=== PATIENT | female | born 1955 | race Caucasian/White ===

== ENCOUNTER 2020-11-30 10:15 | Emergency (ER) | payer OTHER, SELFPAY ==
[2020-11-30 10:30] VITALS: BP 116/95; PULSE 109; RESP 18; TEMP 36.1; O2SAT 98
--- NOTE | 2020-11-30 10:37 | ED.NAVMDI ---
HPI - Nausea/Vomiting/Diarrhea General Chief complaint: Nausea/Vomiting/Diarrhea Stated complaint: nausea, diarhhea, dizziness Time Seen by Provider: 11/30/20 10:43 Source: patient and RN notes reviewed Mode of arrival: ambulatory Limitations: no limitations History of Present Illness HPI Narrative: 65-year-old female resents with concern for nausea, vomiting, diarrhea. She reports watery diarrhea for approximately 2 weeks. Reports she is having approximately 3 watery diarrhea stools daily for 2 weeks. She reports decreased oral intake. Reports dizziness, generalized weakness. Reports approximate 1 month ago she started taking Rybelsus for diabetes and began having side effects such as diarrhea. Reports she stopped taking the medicine 2 weeks ago because of the side effects. Reports she continued to have watery diarrhea daily. She reports she has not taken her blood sugar because her Accu-Chek is broken. She denies generalized abdominal pain, fever. MD elicited complaint: nausea, vomiting and diarrhea Related Data Allergies Allergy/AdvReac Type Severity Reaction Status Date / Time No Known Allergies Allergy Verified 11/30/20 10:52 Review of Systems Review of Systems: Narrative: CONSTITUTIONAL: Denies malaise, chills, sweats, or fever. EYES: Denies visual changes CARDIOVASCULAR: Denies chest pain, palpitations, or edema. RESPIRATORY: Denies cough or dyspnea. GASTROINTESTINAL: Denies abdominal pain. Reports nausea, vomiting, diarrhea. Denies bloody, or mucous stools. GENITOURINARY: Denies dysuria or hematuria. MUSCULOSKELETAL: Reports generalized weakness. Denies myalgia. NEUROLOGIC: Denies numbness, unilateral weakness, or headache. All systems reviewed & are unremarkable except as noted in HPI and below PMFSH Comments At time of signature, agree with nursing past medical, surgical, social and family history. There is no relevant family history pertinent to the presenting complaint Exam Narrative: Exam Narrative: GENERAL: Well-appearing, well-nourished, and in no acute distress. HEAD: Normocephalic, atraumatic. EYES: PERRLA, conjunctivae clear, and EOMI. ENT: Mucous membranes moist. NECK: Supple. No lymphadenopathy. CHEST: No respiratory distress. Clear to auscultation. No bony deformities, no asymmetry. Speaks in full sentences. HEART: Regular rate and rhythm. No murmur heard. Normal peripheral pulses. ABDOMEN: Soft, left upper quadrant tenderness, obese, normal active bowel sounds, no palpable masses. SKIN: Warm, dry, no rash. NEURO: Alert and oriented x3. No focal deficits. PSYCH: Normal mood and affect Course Course Emergency Course: Discussed limited diagnostic capability at the [facility]. Patient is aware of, understands and agrees to be transferred to the emergency department via EMS. Portions of this record may have been created with voice recognition software Vital Signs Vital signs: Vital Signs Temperature 97 F L 11/30/20 10:30 Pulse Rate 109 H 11/30/20 10:30 Respiratory Rate 18 11/30/20 10:30 Blood Pressure 116/95 H 11/30/20 10:30 Pulse Oximetry 98 11/30/20 10:30 Temperature 97 F L 11/30/20 10:30 Pulse Rate 94 11/30/20 10:55 Respiratory Rate 18 11/30/20 10:30 Blood Pressure 120/64 11/30/20 10:55 Pulse Oximetry 98 11/30/20 10:30 Reviewed. Transfer Transfered to: [facility] Transportation: BLS Transfer rationale: Probable dehydration, abnormal EKG, dizziness Accepting physician: trena MDM - Nausea/Vomiting/Diarrhea MDM Narrative Medical decision making narrative: Exam findings and history warrant further evaluation emergency department; patient is non-toxic appearing and is in no distress. Lab Data Labs: Lab Results 11/30/20 Range/Units 10:50 POC Capillary Glucose 243 H (65-105) mg/dl ECG Data EKG #1: ECG completion date: 11/30/20 ECG completion time: 10:57 Prior ECG tracings: not available for review
--- NOTE | 2020-11-30 10:51 | ECG_ITS ---
Measurements Intervals Jadwin Rate: 93 P: 66 CT: 150 QRS: 30 QRSD: 103 T: 48 QT: 352 QTc: 440 Interpretive Statements SINUS RHYTHM POSSIBLE LEFT ATRIAL ENLARGEMENT MINIMAL Q WAVES- INFERIOR LEADS BORDERLINE ECG Electronically Signed On 11-30-2020 12:44:15 CDT by Idris Flowers D.O.
[2020-11-30 10:52] LABS: Glucose Point of Care 243 mg/dl (65-105)
[2020-11-30 10:55] VITALS: BP 120/64; PULSE 94
--- NOTE | 2020-11-30 11:09 | PC.NURSE ---
PT DECLINED WHEELCHAIR TO ROOM
== END 2020-11-30 11:15 | disposition short-term general hospital (02) ==
PROVIDERS: Emergency Provider Nurse Practitioner
DX: R42 Dizziness and giddiness (principal); E78.00 Pure hypercholesterolemia, unspecified; I10 Essential (primary) hypertension
CPT/HCPCS: 82948; 93005; 99205; G0463

== ENCOUNTER 2023-05-27 09:47 | Emergency (ER) | payer OTHER, SELFPAY ==
--- NOTE | ~2023-05-27 | XR_ITS ---
XR hip RT min 2V 05/27/2023 10:26 Indication: Right hip pain. No known injury. Procedure: 2 views right hip Comparison: No prior studies for comparison. Findings: Moderate osteoarthritis of the right hip. No fracture or traumatic malalignment. No soft ti ssue abnormality. No foreign bodies. There is osteitis pubis. Impression: 1: Moderate osteoarthritis of the right hip. Reviewed, dictated and finalized at location B. NOSTIC RADIOLOGIST Impression: 1: Moderate osteoarthritis of the right hip.
[2023-05-27 09:56] VITALS: BP 123/68; PULSE 76; RESP 20; TEMP 36.6; O2SAT 96
--- NOTE | 2023-05-27 10:05 | ED.LOWEXIN ---
HPI - Extremity Injury (Lower) General Chief Complaint: Extremity Injury, Lower Stated Complaint: Right Hip Pain Time Seen by Provider: 05/27/23 10:05 Source: patient Mode of arrival: ambulatory Limitations: no limitations History of Present Illness HPI Narrative: 67-year-old female presents with complaint of pain to right hip for the past several weeks. Reports that she had a area to her soft tissues that was swollen and soft. No erythema, warmth or concerns for infection. States last week while walking up her stairs she felt a pop to her right hip and soft swollen area became hard. Worse that she can see the swelling difference in her hips when she looks in the ear. Taking Tylenol to treat her pain. No other complaints today. Patient requesting x-ray of her right hip. All systems reviewed and negative except as noted above. Related Data Home Medications Medication Instructions Recorded Confirmed duloxetine 30 mg capsule,delayed mg PO 05/27/23 release insulin glargine-yfgn 100 unit/mL unit subcut 05/27/23 (3 mL) subcutaneous pen lisinopril 40 mg tablet mg 05/27/23 metformin 1,000 mg tablet mg 05/27/23 pravastatin 80 mg tablet mg 05/27/23 Allergies Allergy/AdvReac Type Severity Reaction Status Date / Time No Known Allergies Allergy Verified 11/30/20 10:52 Review of Systems Review of Systems: CONSTITUTIONAL: Denies fever, chills, or sweats. EYES: Denies visual changes, redness, or discharge. ENT: Denies rhinorrhea, congestion, sore throat, or otalgia. CARDIOVASCULAR: Denies chest pain, palpitations, or edema. RESPIRATORY: Denies cough or dyspnea. GASTROINTESTINAL: Denies abdominal pain, nausea, vomiting, or diarrhea. GENITOURINARY: Denies dysuria or hematuria. SKIN: Denies rash or itching. MUSCULOSKELETAL: Denies back pain, or myalgia. Reports pain and swelling to right hip. NEUROLOGIC: Denies headache, numbness, or weakness. PSYCHIATRIC: Denies anxiety or depression. All other systems reviewed are negative, except as documented in HPI. PMFSH Comments At time of signature, agree with nursing past medical, surgical, social and family history. There is no relevant family history pertinent to the presenting complaint. Exam Narrative: GENERAL: This is a well-nourished, well-developed patient, in no apparent distress. HEAD: normocephalic, atraumatic. EYES: PERRL. Sclera clear/white. Vision is grossly intact. EARS: External ears normal NOSE: External nose normal NECK: Neck supple, non-tender without lymphadenopathy, masses or thyromegaly. CARDIOVASCULAR: Regular rate and rhythm without murmurs, gallops, or rubs. RESPIRATORY: Clear to auscultation. Breath sounds equal bilaterally. No wheezes, rales, or rhonchi. SKIN: warm, Dry, intact with no suspicious lesions or rash, good texture and turgor. NEURO: awake, alert, and oriented to person, place and time. There were no obvious focal neurologic abnormalities. EXTREMITIES: soft tissue swelling lateral aspect R hip. hard on palpation without fluctuance, erythema or warmth. normal ROM to R hip. Course Course Level of Care: Express Care Visit Vital Signs Vital signs: Vital Signs Temperature 36.6 C 05/27/23 09:56 Pulse Rate 76 05/27/23 09:56 Respiratory Rate 20 05/27/23 09:56 Blood Pressure 123/68 05/27/23 09:56 Pulse Oximetry 96 05/27/23 09:56 Oxygen Delivery Room Air 05/27/23 09:56 Temperature 36.6 C 05/27/23 09:56 Pulse Rate 76 05/27/23 09:56 Respiratory Rate 20 05/27/23 09:56 Blood Pressure 123/68 05/27/23 09:56 Pulse Oximetry 96 05/27/23 09:56 Oxygen Delivery Room Air 05/27/23 09:56 Reviewed MDM - Extremity Injury (Lower) MDM Narrative Medical decision making narrative: Discussed x-ray results with patient. Offered prednisone to treat arthritic pain. He did not feel was necessary. There is nothing on her x-rays to further explain soft tissue swelling. There are no exam find
== END 2023-05-27 11:13 | disposition home or self-care (01) ==
PROVIDERS: Emergency Provider Nurse Practitioner Family; PCP Internal Medicine
DX: M16.11 Unilateral primary osteoarthritis, right hip (principal); M79.89 Other specified soft tissue disorders; Z79.899 Other long term (current) drug therapy; Z79.84 Long term (current) use of oral hypoglycemic drugs; Z79.4 Long term (current) use of insulin
CPT/HCPCS: 73502; 99213; G0463

== ENCOUNTER 2025-01-25 10:01 | Emergency (ER) | payer OTHER, SELFPAY ==
--- NOTE | ~2025-01-25 | XR_ITS ---
EXAM/ PROCEDURE: [id number] - 01/25/2025 10:16 CDT HISTORY: 69 years old Female with fall 5 days ago. Anterior lower rib pain COMPARISON: None available TECHNIQUE: Three view(s) FINDINGS/ IMPRESSION: There are no fractures or dislocations.Joint space narrowing, subchondral sclerosis, subchondral cyst formation and osteophyte formation, compatible with mild osteoarthritis. Visualized portions of the lungs are clear. Central silhouette is unremarkable. Atherosclerotic calci fications are seen. Cholecystectomy clips are seen. Reviewed, dictated and finalized at location A.
[2025-01-25 10:12] VITALS: BP 145/70; PULSE 81; RESP 20; TEMP 36.6; O2SAT 100
--- OUTSIDE RECORDS SUMMARY | 2025-01-25 10:12 | XMS_ITS | Encounter Summary ---
Author Organization [facility] Address [address] [place] [address] Phone Care Team Providers Care Tin Stacker Name Role Phone Supriya Couch APRN, CNP Primary Care P rovider Santiago Webster MD Primary Care Provider [phone] Santiago Webster MD Primary Care Provider [phone] Héctor Hall MD Unavailable Shahrzad Zhang APRN, GENERAL FARM MANAGER Unavailable Reason for Visit * Reason Comments Medication Refill Encounter Details Date Type Department Care Team (Late st Contact Info) Description 11/12/2020 Refill [facility] - Primary Care - [facility] [address] [place] [address] Supriya Couch APRN, GENERAL FARM MANAGER [address] [place] [address] Medication Refill Social History Tobacco Use Types Packs/Day Years Used Date Smoking Tobacco: Former Cigarettes 0.5 30 0 12/10/1996 - 02/17/2020 Smokeless Tobacco: Never Alcohol Use Standard Drinks/Week Comments Yes 0 (1 standard drink = 0.6 oz pur e alcohol) SOCIAL Comments No Sex and Gender Information Value Date Recorded Sex Assigned at Not on file Legal Sex Female 11:35 PM CDT Gender Identity Not on file Sexual Orientation Not on file COVID-19 Exposure Response Date Recorded In the last month, have you been in contact with someone who was confirmed or suspected to have Coronavirus / COVID-19? 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 documented as of this encounter Care Teams Tin Stacker Relationship Specialty Start Date End Date Supriya Couch APRN, GENERAL FARM MANAGER [address] [place] [address] PCP - General Advanced Practice Nurse 12/31/19 05/20/22 Santiago Webster MD [address] [place] [address] PCP - General Internal Medicine 05/21/22 11/13/22 Santiago Webster MD [facility] [place] [address] PCP - General Internal Medicine 12/17/22 Héctor Hall MD [address] [place] [address] Consulting Physician Neurology 12/17/22 Shahrzad Zhang APRN, GENERAL FARM MANAGER [address] [place] [address] Nurse Practitioner Advanced Practice Nurse 05/28/23 documented as of this encounter
--- OUTSIDE RECORDS SUMMARY | 2025-01-25 10:12 | XMS_ITS | Clinical Summary ---
Author Organization [facility] Address [address] [place] [address] Phone Care Team Providers Care Fisher Name Role Phone Santiago Webster MD Primary Care Provider [phone] Héctor Hall MD Unavailable [phone] Shahrzad Zhang APRN, ECHO TECH Unavailable Allergies Active Allergy Reactions Criticality Noted Date Comments Ciprofloxacin Rash 07/30/2016 Meperidine Rash 07/30/2016 Medications Blood Glucose Monitoring Suppl (ONE TOUCH ULTRA 2) w/Device Kit use as directed 11/11/19 16 Active Glucose Blood (ONE TOUCH ULTRA TEST) StripIndications:T ype 2 diabetes mellitus with hyperglycemia, with long-term current use of insulin (HCC) Use to test blood glucose once daily at alternating times. DX: DM II E11.65 50 Strip 5 12/08/19 21 Active pravastatin (PRAVACHOL) 80 MG TabletIndications: Mixed hyperlipidemia TAKE 1 TABLET BY MOUTH EVERY EVENING 90 Tablet 1 07/09/19 22 Active DULoxetine (CYMBALTA) [address] Soria ns:Fibromyalgia TAKE 1 CAPSULE BY MOUTH EVERY MORNING( 60 MG PLUS 30 MG) 90 Capsule 07/09/19 22 Active Additional Information Patient not taking.Reported on 12/17/2022 B-D ULTRAFINE III SHORT PEN 31G X 8 MM MiscIndications:Ty pe 2 diabetes mellitus with hyperglycemia, without long-term current use of insulin (HCC) USE DIRECTED 100 Pen Needle 08/09/19 22 Active lisinopril (PRINIVIL, ZESTRIL) 40 MG TabletIndications: Essential hypertension Take 1 Tablet by mouth daily. 90 Tablet 1 09/06/19 22 Active DULoxetine (CYMBALTA) [address] Soria ns:Fibromyalgia Take 1 Capsule by mouth daily. 90 Capsule 1 09/06/19 22 Active metFORMIN (GLUCOPHAGE) 1000 MG TabletIndications: Type 2 diabetes mellitus with hyperglycemia, without long-term current use of insulin ([facility]) Take 1 Tablet by mouth 2 times daily (with meals). 180 Tablet 1 09/06/19 22 Active Lantus SoloStar 100 UNIT/ML Solution Pen-injectorIndica tions:Type 2 diabetes mellitus with hyperglycemia, without long-term current use of insulin ([facility]) ADMINISTER 22 UNITS UNDER THE SKIN EVERY NIGHT 6 mL 1 09/15/19 22 Active insulin glargine-yfgn 100 UNIT/ML Solution Pen-injector ADMINISTER 22 UNITS UNDER THE SKIN EVERY EVENING 15 mL 1 05/21/20 22 Active Mounjaro 5 MG/0.5ML Solution Pen-injector 11/16/19 23 Active Active Problems Problem Noted Date Diagnosed Date Type 2 diabetes mellitus wit h hyperglycemia, without long-term current use of insulin 07/30/2016 High blood pressure 07/30/2016 Mixed hyperlipidemia 07/30/2016 Fibromyalgia 07/30/2016 Obstructive sleep apnea syndrome 07/30/2016 Resolved Problems Problem Noted Date Diagnosed Date Resolved Date Dehydration 12/07/2020 12/07/2020 Diarrhea 11/30/2020 12/07/2020 Overview (12/07/2020): Last Assessment & Plan: Possibly medicine related as recently started on Semaglutide. COVID 19 negative. Stool work up including C. Diff is ordered. Continue iv fluids. Metabolic acidosis 11/30/2020 Overview (12/07/2020): Last Assessment & Plan: Suspect secondary to diarrhea. Continue management of diarrhea as stated. Closed nondisplaced fracture of body of left calcaneus 08/14/2017 12/07/2020 Pain in left foot 08/14/2017 12/31/2019 Colon polyps 07/30/2016 12/07/2020 Immunizations Immunization Administration Dates Next Due Covid-19, Mrna, Lnp-s, PF, 1 00 mcg/0.5 mL Dose (Moderna) 09/07/2020,08/09/2020 Covid-19, Mrna, Lnp-s, PF, 5 0 mcg/0.25 mL dose (Moderna) 09/05/2021 Influenza Vaccine greater than 3 yrs ,05/06/2019,06/06/2017,2015,04/07/2012 Influenza Vaccine, Quadrivalent, PF 09/05/2021 Influenza, Injectable, Quadrivalent 03/08/2015 Influenza, Seasonal, Injecta ble, Undefined 06/06/2017,05/22/2016,04/07/2012 Pneumococcal Vaccine Adult - 23 Valent 03/08/2009 Family History Medical History Relation Name Comments Diabetes Brother Cancer Father stomach Dementia Father Cancer Maternal Grandmother stomach Diabetes Mother Elevated Lipids Mother Heart Surgery Mother Hypertension Mother Cancer Paternal Grandfather prostat e Cancer Paternal Uncle pancreatic Diabetes Sister 1 Diabetes Sister 2 Relation Name Status Comments Brother Alive Father Maternal Grandmother Mother Alive Paternal Grandfather Paternal Uncle Sister 1 Alive Sister 2 Social History Tobacco Use Types Packs/Day Years Used Date Smoking Tobacco: Former Cigarettes 0.5 30 0 12/10/1996 - 02/17/2020 Smokeless Tobacco: Never Alcohol Use Standard Drinks/Week Comments Yes 0 (1 standard drink = 0.6 oz pur e alcohol) SOCIAL Sexually Active Control Partners Comments Yes Male Comments No Sex and Gender Information Value Date Recorded Sex Assigned at Not on file Legal Sex Female 11:35 PM CDT Gender Identity Not on file Sexual Orientation Not on file Last Filed Vital Signs Vital Sign Reading Time Taken Comments Blood Pressure 122/64 05/28/2023 2:02 PM JAW SKINNER Pulse 78 05/28/2023 2:02 PM JAW SKINNER Temperature 36.6 C (97.8 F) 05/28/2023 2:02 PM JAW SKINNER Respiratory Rate 14 05/28/2023 2:02 PM JAW SKINNER Oxygen Saturation 97% 05/28/2023 2:02 PM JAW SKINNER Inhaled Oxygen Concentration - - Weight 99.8 kg (220 lb) 05/28/2023 2:02 PM JAW SKINNER Height 172.7 cm (5' 8) 05/28/2023 2:02 PM J[facility] SKINNER Body Mass Index 33.45 05/28/2023 2:02 PM JAW SKINNER Plan of Treatment Health Maintenance Due Date Last Done Comments DEXA Bone Density 1957 Diabetes: Foot Exam 1955 Hepatitis C Virus (HCV) Screening 1955 TdaP Immunization 1955 Cologuard 2002 Immunochemical Fecal Occult Blood 2002 Pneumococcal Immunization (50+ years) (2 of 2 - PCV) 03/08/2010 03/08/2009 Respiratory Syncytial Virus (RSV) Immunization (Adult) (1 - Risk 60-74 years 1-dose series) 2017 Zoster Immunization (2 of 2) 05/25/2020 03/30/2020 Diabetes: Eye Exam 08/12/2021 08/12/2020, 09/03/2016 Diabetes: Hemoglobin A1c 02/26/2022 022, 10/28/2020, 07/14/2020, Additional history exists Mammogram 05/09/2022 05/09/2020, 01/06, 10/16/2016 Diabetes: Nephropathy Screening 08/29/2022 08/29/2021, 10/28/2020, 07/14/2020, Additional history exists SARS-COV-2 Immunization ( season) 2024 09/05/2021, 09/07/2020, 08/09/2020 Influenza Immunization (#1) 2025 03/0 07/2021, 03/28/2020, 05/06/2019, Additional history exists Colonoscopy 05/20/2025 05/20/2020, 12/10/2016 Colorectal Cancer Screening 05/20/2025 Pneumococcal Immunization Combined Discontinued 03/08/2009 Hepatitis B Immunization Aged Out No longer eligible based on patient's age to complete this topic Human Papillomavirus (HPV) Immunization Aged Out No longer eligible based on patient's age to complete this topic Meningococcal Immunization (ACWY) Aged Out No longer eligible based on patient's age to complete this topic Rotavirus Immunization Aged Out No lo nger eligible based on patient's age to complete this topic Procedures Procedure Name Priority Date/Time Associated Diagnosis Comments CMP (COMPREHENSIVE METABOLIC PANEL) Routine 08/29/2021 8:26 AM JAW SKINNER Mixed hyperlipidemia HEMOGLOBIN A1C W/ ESTIMATED GLUCOSE Routine 08/29/2021 8:26 AM JAW SKINNER Type 2 diabetes mellitus with hyperglycemia, with long-term current use of insulin (HCC) HM DILATED EYE EXAM Routine 08/12/2020 TK SCREENING BILATERAL DIGITAL W CAD W TIP Routine 05/09/2020 9:46 AM JAW SKINNER Encounter for screening mammogram for malignant neoplasm of breast from Last 3 Months or Most Recently Relevant to Health Maintenance Results * (ABNORMAL) HEMOGLOBIN A1C W/ ESTIMATED GLUCOSE (08/29/2021 8:26 AM JAW SKINNER) HGB-A1C 7.8(H) 4.0 - 6.0 % 08/29/2021 3:36 PM JAW SKINNER [facility] Est Average Glucose 177.2 mg/dL 08/29/2021 3:36 PM JAW SKINNER [facility] Blood Venipuncture / Unknown 08/29/2021 8:26 AM JAW SKINNER 08/29/2021 8:26 AM JAW SKINNER Narrative [facility] - 08/29/2021 3:36 PM JAW SKINNER HEMOGLOBIN A1C: DIABETIC PATIENTS: WELL-CONTROLLED: 6.2 - 7.0 INTERMEDIATE WELL-CONTROLLED: 7.0 - 9.0 POORLY-CONTROLLED: >9.0 us Supriya Couch APRN, CNP CHEMISTRY ORDER GAGAN Final Result [facility] [address] [place] [address] * (ABNORMAL) CMP (COMPREHENSIVE METABOLIC PANEL) (08/29/2021 8:26 AM JAW SKINNER) SODIUM 136 136 - 144 mmol/L 08/29/2021 3:06 PM [facility] POTASSIUM 5.4(H) 3.5 - 5.1 mmol/L 08/29/2021 3:06 PM [facility] CHLORIDE 100 100 - 110 mmol/L 08/29/2021 3:06 PM [facility] CO2, VENOUS 25 22 - 32 mmol/L 08/29/2021 3:06 PM [facility] ANION GAP 16.4 8.0 - 20.0 mmol/L 08/29/2021 3:06 PM [facility] GLUCOSE 168(H) 70 - 99 mg/dL 08/29/2021 3:06 PM [facility] BUN 19 8 - 23 mg/dL 08/29/2021 3:06 PM [facility] CREATININE, BLOOD 1.18(H) 0.60 - 1.10 mg/dL 08/29/2021 3:06 PM [facility] BUN/CREATININE RATIO 16 12 - 20 ratio 08/29/2021 3:06 PM [facility] TOTAL PROTEIN 7.6 6.0 - 8.3 g/dL 08/29/2021 3:06 PM [facility] ALBUMIN 4.5 3.5 - 5.2 g/dL 08/29/2021 3:06 PM [facility] Comment: The colormetric methods used for the determination of Albumin may lead to falsely elevated test results in patients suffering from renal failure or insufficiency due to interference with other proteins. A/G RATIO 1.5 1.0 - 2.0 08/29/2021 3:06 PM [facility] CALCIUM 9.5 8.9 - 10.3 mg/dL 08/29/2021 3:06 PM [facility] T BILI 0.3 <=1.2 mg/dL 08/29/2021 3:06 PM [facility] SGOT (AST) 12 <=32 U/L 08/29/2021 3:06 PM J[facility] SGPT (ALT) 12 <=41 U/L 08/29/2021 3:06 PM JAW SK[facility]NER [facility] ALKALINE PHOSPHATASE 57 35 - 105 U/L 08/29/2021 3:06 PM J[facility] SK[facility]NER [facility] GFR, EST. NONAFRICAN 46(L) >=60 08/29/2021 3:06 PM [facility]NER [facility] GFR, EST. 56(L) >=60 022 3:06 PM JAW SKINNER [facility] Comment: Creatinine Clearance is the preferred criteria for selecting drug dose adjustments in renally impaired patients. The GFR is provided as additional pertinent clinical information. GFR is reported in mL/min/1.73 sq m. IS THE PATIENT REQUIRED TO BE FASTING? No 08/29/2021 3:06 PM [facility]NER [facility] Blood Venipuncture / Unknown 08/29/2021 8:26 AM JAW SKINNER 08/29/2021 8:26 AM JAW SKINNER us Supriya Couch APRN, CNP CHEMISTRY ORDER GAGAN Final Result [facility] [address] [place] [address] * DILATED EYE EXAM (08/12/2020) us Not On File Provider PROCEDURE/MINOR SURGICAL OR DERABLES Final Result * TK SCREENING BILATERAL DIGITAL W CAD W TIP (05/09/2020 9:46 AM J[facility]INNER) Anatomical Region Laterality Modality breast Bilateral Mammography 05/09/2020 9:21 AM JAW SKINNER Narrative 05/10/2020 6:10 AM JAW SKINNER - TK SCREENING BILATERAL DIGITAL W CAD W TIP BILATERAL DIGITAL SCREENING MAMMOGRAM 3D/2D WITH CAD WITH MEDIOLATERAL OBLIQUE CRANIOCAUDAL: 05/09/2020 The study was acquired using digital technology and interpreted from soft copy. Current study was also evaluated with ICAD version 7.2. CLINICAL: Routine screening. Patient has no complaints. No personal history of cancer. No family history of breast cancer. COMPARISONS: Comparison is made to exams dated: 01/27/2018, 07/16/2017, 10/25/2016, and 10/16/2016 [facility]. BREAST TISSUE:There are scattered fibroglandular densities in both breasts. FINDINGS: There are benign calcifications in both breasts. No significant masses, calcifications, or other findings are seen in either breast. There has been no significant interval change. IMPRESSION: BI-RAD 2 BENIGN There is no mammographic evidence of malignancy. A 1 year screening mammogram is recommended. The patient has been or will be contacted. The patient will be entered into a reminder system with a target due date of 1 year for her next screening exam. Electronically signed by: Rossi bhagat/damion:05/09/2020 21:18:14 Electrical And Instrumentation Mechanic: Karen GUTIERREZ(Gayle)(Chemo), [facility] letter sent: Normal Exam Reading location: [facility] BI-RADS: 2 Benign Procedure Note Rossi Montero MD - 05/10/2020 - TK SCREENING BILATERAL DIGITAL W CAD W TIP BILATERAL DIGITAL SCREENING MAMMOGRAM 3D/2D WITH CAD WITH MEDIOLATERAL OBLIQUE CRANIOCAUDAL: 05/09/2020 The study was acquired using digital technology and interpreted from soft copy. Current study was also evaluated with ICAD version 7.2. CLINICAL: Routine screening. Patient has no complaints. No personal history of cancer. No family history of breast cancer. COMPARISONS: Comparison is made to exams dated: 01/27/2018, 07/16/2017, 10/25/2016, and 10/16/2016 [facility]. BREAST TISSUE:There are scattered fibroglandular densities in both breasts. FINDINGS: There are benign calcifications in both breasts. No significant masses, calcifications, or other findings are seen in either breast. There has been no significant interval change. IMPRESSION: BI-RAD 2 BENIGN There is no mammographic evidence of malignancy. A 1 year screening mammogram is recommended. The patient has been or will be contacted. The patient will be entered into a reminder system with a target due date of 1 year for her next screening exam. Electronically signed by: Rossi Montero M.D. ll/penrad:05/09/2020 21:18:14 Electrical And Instrumentation Mechanic: Karen FLYNN)(M), [facility] letter sent: Normal Exam Reading location: [facility] BI-RADS: 2 Benign ENZO Vega APRN MAMMO ORDER GAGAN Final Result from Last 3 Months or Most Recently Relevant to Health Maintenance Insurance [employer] Care Teams Fisher Relationship Specialty Start Date End Date Santiago Webster MD [facility] [place] [address] PCP - General Internal Medicine 12/17/22 Héctor Hall MD [address] [place] [id number] Consulting Physician Neurology 12/17/22 Shahrzad Zhang APRN, ECHO TECH [address] [place] [address] Nurse Practitioner Advanced Practice Nurse 05/28/23
--- OUTSIDE RECORDS SUMMARY | 2025-01-25 10:12 | XMS_ITS | Encounter Summary ---
Author Organization [facility] Address [address] [place] [address] Phone Care Team Providers Care Cable Operator Name Role Phone Supriya Couch APRN, CATH LABORATORY TECHNICIAN Primary Care P rovider Santiago Webster MD Primary Care Provider [phone] Santiago Webster MD Primary Care Provider [phone] Héctor Hall MD Unavailable [phone] Shahrzad Zhang APRN, CATH LABORATORY TECHNICIAN Unavailable Reason for Visit * Reason Comments Medication Refill Encounter Details Date Type Department Care Team (Late st Contact Info) Description 03/29/2021 Refill [facility] [address] [facility] [place] [address] Supriya Couch APRN, CATH LABORATORY TECHNICIAN [address] [address] Medication Refill Social History Tobacco Use [...] on file Sexual Orientation Not on file documented as of this encounter Miscellaneous Notes * Telephone Encounter - Demetri Tomas PAC - 03/29/2021 2:07 PM CDT Rx refill approved. * Telephone Encounter - Shaunna Ferrara RN - 03/29/2021 11:36 AM CDT Medication failed the protocol, provider to review and approve the medication order if appropriate. Requested Prescriptions Pending Prescriptions Disp Refills Lantus SoloStar 100 UNIT/ML Solution Pen-injector [Pharmacy Med Name: LANTUS SOLOSTAR PEN INJ 3ML] 6 mL 0 Sig: ADMINISTER 22 UNITS UNDER THE SKIN EVERY NIGHT There is no refill protocol information for this order Insulin Pen Needle (B-D ULTRAFINE III SHORT PEN) 31G X 8 MM Misc [Pharmacy Med Name: B-D PEN NDL SHRT [id number](11/20) SPARKLE] Sig: USE DIRECTED Diabetic Supplies Protocol Passed - 03/29/2021 9:40 AM Passed - Visit with relevant provider in past 6 months Recent Visits Date Type Provider Dept 02/09/21 Office Visit Supriya Couch APN, CNP [facility] 12/07/20 Office Visit Supriya Couch APN, CNP [facility] 11/01/20 Office Visit Supriya Couch APN, CNP [facility] Showing recent visits within past 182 days and meeting all other requirements Future Appointments No visits were found meeting these conditions. Showing future appointments within next 90 days and meeting all other requirements documented in this encounter Plan of Treatment Not on file documented as of this encounter Visit Diagnoses Diagnosis Type 2 diabetes mellitus with hyperglycemia, without long-term current use of insulin (HCC) documented in this encounter Additional Health Concerns Assessment Noted Time PHQ-9 Depression Total Score: 0 07/30/19 17 8:00 AM CARPET FINISHING SUPERVISOR documented as of this encounter Care Teams Cable Operator Relationship Specialty Start Date End Date Supriya Couch APRN, CATH LABORATORY TECHNICIAN [address] [place] [address] PCP - General Advanced Practice Nurse 12/31/19 05/20/22 Santiago Webster MD [address] [place] [address] PCP - General Internal Medicine 05/21/22 11/13/22 [place] [address] [place] [address] PCP - General Internal Medicine 12/17/22 Héctor Hall MD [address] [place] [id number] Consulting Physician Neurology 12/17/22 Shahrzad Zhang APRN, CATH LABORATORY TECHNICIAN [address] [place] [address] Nurse Practitioner Advanced Practice Nurse 05/28/23 documented as of this encounter
--- OUTSIDE RECORDS SUMMARY | 2025-01-25 10:12 | XMS_ITS | Encounter Summary ---
Author Organization [facility] Address [address] [place] [address] Phone Care Team Providers Care Behavioral Assistant Name Role Phone Supriya Couch APRN, CNP Primary Care P rovider Santiago Webster MD Primary Care Provider [phone] Santiago Webster MD Primary Care Provider [phone] Héctor Hall MD Unavailable Shahrzad Zhang APRN, MECHANICAL ENGINEERING TEACHER Unavailable Reason for Visit * Reason Comments Medication Refill Encounter Details Date Type Department Care Team (Late st Contact Info) Description 01/19/2021 Refill [facility] - [facility] Care - [facility] [address] [place] [address] Supriya Couch APRN, ENZO [address] [place] [address] Medication Refill Social History Tobacco Use [...] encounter Miscellaneous Notes * Telephone Encounter - Ivy Sinha RN - 01/19/2021 3:19 PM CDT The original prescription was discontinued on 11/01/2020 by Supriya Couch APN, CNP for the following reason: Alternate therapy documented in this encounter Plan of Treatment Not on file documented as of this encounter Visit Diagnoses Diagnosis Type 2 diabetes mellitus with hyperglycemia, without long-term current use of insulin (HCC) documented in this encounter Additional Health Concerns Assessment Noted Time PHQ-9 Depression Total Score: 0 07/30/19 17 8:00 AM INSTRUCTIONAL DESIGNER documented as of this encounter Care Teams Behavioral Assistant Relationship Specialty Start Date End Date Supriya Couch APRN, CNP [address] [place] [address] PCP - General Advanced Practice Nurse 12/31/19 05/20/22 Santiago Webster MD [address] [place] [address] PCP - General Internal Medicine 05/21/22 11/13/22 Santiago Webster MD [address] [place] [address] PCP - General Internal Medicine 12/17/22 Héctor Hall MD [address] [place] [address] Consulting Physician Neurology 12/17/22 Shahrzad Zhang APRN, MECHANICAL ENGINEERING TEACHER [address] [place] [address] Nurse Practitioner Advanced Practice Nurse 05/28/23 documented as of this encounter
--- OUTSIDE RECORDS SUMMARY | 2025-01-25 10:12 | XMS_ITS | Encounter Summary ---
Author Organization [facility] Address [address] [place] [address] Phone Care Team Providers Care Pe Electrical Engineer Name Role Phone Supriya Couch APRN, CRUSHER OPERATOR Primary Care P rovider Santiago Webster MD Primary Care Provider [phone] Santiago Webster MD Primary Care Provider [phone] Héctor Hall MD Unavailable Shahrzad Zhang APRN, CRUSHER OPERATOR Unavailable Reason for Visit * Reason Comments Medication Refill Encounter Details Date Type Department Care Team (Late st Contact Info) Description 10/06/2021 Refill [facility] - [facility] [address] [facility] [place] [address] Supriya Couch APRN, CRUSHER OPERATOR [address] [address] Medication Refill Social History Tobacco [...] have Coronavirus / COVID-19? No / Unsure 09/13/2021 9:12 AM BOAT HOP documented as of this encounter Miscellaneous Notes * Telephone Encounter - Nubia Ray RN - 10/06/2021 10:27 AM CDT Medication approved and signed per standing order protocol. documented in this encounter Plan of Treatment Not on file documented as of this encounter Visit Diagnoses Diagnosis Type 2 diabetes mellitus with hyperglycemia, without long-term current use of insulin (HCC) documented in this encounter Additional Health Concerns Assessment Noted Time PHQ-9 Depression Total Score: 0 07/30/19 17 8:00 AM BOAT HOP documented as of this encounter Care Teams Pe Electrical Engineer Relationship Specialty Start Date End Date Supriya Couch APRN, CRUSHER OPERATOR [address] [place] [address] PCP - General Advanced Practice Nurse 12/31/19 05/20/22 Santiago Webster MD [address] [place] [address] PCP - General Internal Medicine 05/21/22 11/13/22 Santiago Webster MD [address] [place] [address] PCP - General Internal Medicine 12/17/22 Héctor Hall MD [address] [place] [address] Consulting Physician Neurology 12/17/22 Shahrzad Zhang APRN, CRUSHER OPERATOR [address] [place] [address] Nurse Practitioner Advanced Practice Nurse 05/28/23 documented as of this encounter
--- OUTSIDE RECORDS SUMMARY | 2025-01-25 10:12 | XMS_ITS | Encounter Summary ---
Author Organization [facility] Address [address] [place] [address] Phone Care Team Providers Care Butter Liquefier Name Role Phone Supriya Couch APRN, BOTTOM CEMENTER Primary Care P rovider Santiago Webster MD Primary Care Provider [phone] Santiago eWbster MD Primary Care Provider [phone] Héctor Hall MD Unavailable [phone] Shahrzad Zhang APRN, BOTTOM CEMENTER Unavailable Reason for Visit * Reason Comments Medication Refill Encounter Details Date Type Department Care Team (Late st Contact Info) Description 07/07/2021 Refill [facility] - [facility] [address] [place] [address] Supriya Couch APRN, BOTTOM CEMENTER [address] [address] Medication Refill Social History Tobacco [...] encounter Miscellaneous Notes * Telephone Encounter - Abby Avitia - 07/08/2021 9:37 AM CST Patient calling back asking about the Lantus pens - appears the Lantus vials were ordered, and she does not use the vials. I called [facility] and verified this information. Order corrected and patient has been notified. Unable to sign for the pravastatin and Cymbalta, however, and patient will needthose refilled as well. TRE ARTS PROFESSOR documented in this encounter Plan of Treatment Not on file documented as of this encounter Visit Diagnoses Diagnosis Type 2 diabetes mellitus with hyperglycemia, without long-term current use of insulin (HCC) Mixed hyperlipidemia Fibromyalgia Mylagia and myositis, unspecified documented in this encounter Additional Health Concerns Assessment Noted Time PHQ-9 Depression Total Score: 0 07/30/19 17 8:00 AM THEATRE ARTS PROFESSOR documented as of this encounter Care Teams Butter Liquefier Relationship Specialty Start Date End Date Supriya Couch APRN, BOTTOM CEMENTER [address] [place] [address] PCP - General Advanced Practice Nurse 12/31/19 05/20/22 Santiago Webster MD [address] [place] [address] PCP - General Internal Medicine 05/21/22 11/13/22 Santiago Webster MD [address] [place] [address] PCP - General Internal Medicine 12/17/22 Héctor Hall MD [address] [place] [address] Consulting Physician Neurology 12/17/22 Shahrzad Zhang APRN, BOTTOM CEMENTER [address] [place] [address] Nurse Practitioner Advanced Practice Nurse 05/28/23 documented as of this encounter
--- OUTSIDE RECORDS SUMMARY | 2025-01-25 10:12 | XMS_ITS | Encounter Summary ---
Author Organization [facility] Address [address] [place] [address] Phone Care Team Providers Care Cloth Feeder Name Role Phone Santiago Webster MD Primary Care Provider [phone] Santiago Webster MD Primary Care Provider [phone] Héctor Hall MD Unavailable [phone] Shahrzad Zhang APRN, CANVASSING MANAGER Unavailable Reason for Visit * Reason Comments Medication Refill Encounter Details Date Type Department Care Team (Late st Contact Info) Description 10/13/2022 Refill [facility] - [facility] [address] [place] [address] Supriya Couch APRN, CANVASSING MANAGER [address] [address] Medication Refill Social History Tobacco Use Types [...] on file documented as of this encounter Plan of Treatment Not on file documented as of this encounter Visit Diagnoses Not on filedocumented in this encounter Additional Health Concerns Assessment Noted Time PHQ-9 Depression Total Score: 0 07/30/19 17 8:00 AM PARTNER documented as of this encounter Care Teams Cloth Feeder Relationship Specialty Start Date End Date Santiago Webster MD PCP - General Internal Medicine 05/21/22 11/13/22 Santiago Webster MD [address] [place] [address] PCP - General Internal Medicine 12/17/22 Héctor Hall MD [address] [place] [id number] Consulting Physician Neurology 12/17/22 Shahrzad Zhang APRN, CANVASSING MANAGER [address] [place] [address] Nurse Practitioner Advanced Practice Nurse 05/28/23 documented as of this encounter
--- OUTSIDE RECORDS SUMMARY | 2025-01-25 10:12 | XMS_ITS | Encounter Summary ---
Author Organization [facility] Address [address] [place] [address] Phone Care Team Providers Care Engraver Seals Name Role Phone Supriya Couch APRN, EXCAVATOR BACKHOE OPERATOR Primary Care P rovider Santiago Webster MD Primary Care Provider [phone] Santiago Webster MD Primary Care Provider [phone] Héctor Hall MD Unavailable Shahrzad Zhang APRN, EXCAVATOR BACKHOE OPERATOR Unavailable Reason for Visit * Reason Comments Medication Refill Encounter Details Date Type Department Care Team (Late st Contact Info) Description 07/06/2021 Refill [facility] - [facility] Medicine - [place] [address] [facility] [place] [address] Supriya Couch APRN, EXCAVATOR BACKHOE OPERATOR [address] [address] Medication Refill Social History Tobacco [...] Telephone Encounter - Nubia Ray RN - 07/10/2021 2:54 PM AUTOMATED CUTTING MACHINE OPERATOR Duplicate MATED CUTTING MACHINE OPERATOR documented in this encounter Plan of Treatment Not on file documented as of this encounter Visit Diagnoses Diagnosis Type 2 diabetes mellitus with hyperglycemia, without long-term current use of insulin (HCC) Mixed hyperlipidemia Fibromyalgia Mylagia and myositis, unspecified documented in this encounter Additional Health Concerns Assessment Noted Time PHQ-9 Depression Total Score: 0 07/30/19 17 8:00 AM AUTOMATED CUTTING MACHINE OPERATOR documented as of this encounter Care Teams Engraver Seals Relationship Specialty Start Date End Date Supriya Couch APRN, EXCAVATOR BACKHOE OPERATOR [address] [place] [address] PCP - General Advanced Practice Nurse 12/31/19 05/20/22 Santiago Webster MD [address] [place] [address] PCP - General Internal Medicine 05/21/22 11/13/22 [place] [address] [place] [address] PCP - General Internal Medicine 12/17/22 Héctor Hall MD [address] [place] [address] Consulting Physician Neurology 12/17/22 Shahrzad Zhang APRN, EXCAVATOR BACKHOE OPERATOR [address] [place] [address] Nurse Practitioner Advanced Practice Nurse 05/28/23 documented as of this encounter
--- OUTSIDE RECORDS SUMMARY | 2025-01-25 10:12 | XMS_ITS | Encounter Summary ---
Author Organization [facility] Address [address] [place] [address] Phone Care Team Providers Care Manufacturing Teacher Name Role Phone Supriya Couch APRN, CNP Primary Care P rovider Santiago Webster MD Primary Care Provider [phone] Santiago Webster MD Primary Care Provider [phone] Héctor Hlal MD Unavailable Shahrzad Zhang APRN, QUANTITATIVE ANALYST MARKETING Unavailable Reason for Visit * Reason Comments Medication Refill Encounter Details Date Type Department Care Team (Late st Contact Info) Description 09/30/2020 Refill [facility] - Primary Care - [place] [address] [place] [address] Supriya Couch APRN, ENZO [address] [place] [address] Medication Refill Social History Tobacco Use [...] Telephone Encounter - Nubia Ray RN - 09/30/2020 12:08 PM CDT Medication approved and signed per standing order protocol. documented in this encounter Plan of Treatment Not on file documented as of this encounter Visit Diagnoses Diagnosis Type 2 diabetes mellitus with hyperglycemia, without long-term current use of insulin (HCC) documented in this encounter Additional Health Concerns Assessment Noted Time PHQ-9 Depression Total Score: 0 07/30/19 17 8:00 AM BELT AND LINK SHOP SUPERVISOR documented as of this encounter Care Teams Manufacturing Teacher Relationship Specialty Start Date End Date Supriya Couch APRN, QUANTITATIVE ANALYST MARKETING [address] [place] [address] PCP - General Advanced Practice Nurse 12/31/19 05/20/22 Santiago Webster MD [address] [place] [address] PCP - General Internal Medicine 05/21/22 11/13/22 Santiago Webster MD [address] [place] [address] PCP - General Internal Medicine 12/17/22 Héctor Hall MD [address] [place] [address] Consulting Physician Neurology 12/17/22 Shahrzad Zhang APRN, QUANTITATIVE ANALYST MARKETING [address] [place] [address] Nurse Practitioner Advanced Practice Nurse 05/28/23 documented as of this encounter
--- OUTSIDE RECORDS SUMMARY | 2025-01-25 10:12 | XMS_ITS | Encounter Summary ---
Author Organization [facility] Address [address] [place] [address] Phone Care Team Providers Care Press Leader Name Role Phone Supriya Couch APRN, CNP Primary Care P rovider Santiago Webster MD Primary Care Provider [phone] Santiago Webster MD Primary Care Provider [phone] Héctor Hall MD Unavailable Shahrzad Zhang APRN, SEC ACCOUNTANT Unavailable Reason for Visit * Reason Comments Medication Refill Encounter Details Date Type Department Care Team (Late st Contact Info) Description 09/30/2020 Refill [facility] - Primary Care - [place] [address] [place] [address] Supriya Couch APRN, ENZO [address] [place] [address] Medication Refill Social History Tobacco Use [...] Encounter - Nubia Ray RN - 09/30/2020 11:56 AM CDT Medication approved and signed per standing order protocol. documented in this encounter Plan of Treatment Not on file documented as of this encounter Visit Diagnoses Diagnosis Type 2 diabetes mellitus with hyperglycemia, without long-term current use of insulin (HCC) documented in this encounter Additional Health Concerns Assessment Noted Time PHQ-9 Depression Total Score: 0 07/30/19 17 8:00 AM LINE INSTALLER TROLLEY documented as of this encounter Care Teams Press Leader Relationship Specialty Start Date End Date Supriya Couch APRN, SEC ACCOUNTANT [address] [place] [address] PCP - General Advanced Practice Nurse 12/31/19 05/20/22 Santiago Webster MD [address] [place] [address] PCP - General Internal Medicine 05/21/22 11/13/22 Santiago Webster MD [address] [place] [address] PCP - General Internal Medicine 12/17/22 Héctor Hall MD [address] [place] [address] Consulting Physician Neurology 12/17/22 Shahrzad Zhang APRN, SEC ACCOUNTANT [address] [place] [address] Nurse Practitioner Advanced Practice Nurse 05/28/23 documented as of this encounter
--- OUTSIDE RECORDS SUMMARY | 2025-01-25 10:12 | XMS_ITS | Referral Summary ---
Author Organization [address] Address [address] [place] [address] Care Team Providers Care County Court Judge Name Role Phone Santiago Webster MD Primary Care Provider + Encounters Date Type Department Care Team Description 12/03/2024 Telephone [facility] Gastroenterology at [address] [place] [address] Hugh Sheldon, DO from Last 3 Months Allergies Active Allergy Reactions Criticality Noted Date Comments Ciprofloxacin Rash Reaction: Rash, , Meperidine Rash Reaction: Rash, , Medications blood glucose diagnostic (ONETOUCH ULTRA TEST) strip use to check glucose 1x daily 50 strip 3 6 Active lancets (ONETOUCH DELICA LANCETS) 33 gauge misc use to check glucose 1x daily 50 each 3 6 Active metFORMIN XR (GLUCOPHAGE XR) 500 mg 24 hr tablet TAKE 2 TABLETS BY MOUTH TWICE A DAY WITH MEALS 120 2 6 Active Additional Information Patient taking differently: 1,000 mg, Reported on 07/04/2023 pravastatin (PRAVACHOL) 40 mg tablet TAKE 1 TABLET BY ORAL ROUTE EVERY DAY 30 5 6 Active Additional Information Patient taking differently: 80 mg, Reported on 07/04/2023 naproxen (NAPROSYN) 500 mg tabletIndicatio ns:Pain 500 mg 2 (two) times a day [address] (CYMBALTA) 30 mg capsule Take 1 capsule (30 mg total) by mouth daily Active LANTUS 100 unit/mL (3 mL) pen for injectionIndica tions:type 2 diabetes mellitus Inject 16 Units under the skin nightly 4.8 mL 1 Active insulin aspart (NovoLOG) 100 unit/mL (3 mL) pen for injection Inject 5 Units under the skin 3 (three) times a day with meals 4.5 mL 1 Active lisinopriL (PRINIVIL,ZESTR IL) 40 mg tablet Take 0.5 tablets (20 mg total) by mouth daily Active celecoxib (CeleBREX) 200 mg capsule Take 1 capsule (200 mg total) by mouth 2 (two) times a day Active Active Problems Problem Noted Date Diagnosed Date History of colonic polyps 12/03/2024 Encounter for screening colonoscopy 12/03/2024 Thyroid nodule 07/04/2023 Assessment & Plan (07/04/2023 10:04 AM FLOUR TESTER): We have discussed with the patient that we will 1st start by proceeding with a dedicated ultrasound of the thyroid. Depending on what is shown we will determine further course of action Disease of esophagus 12/26/2021 Overview (12/26/2021): Added automatically from request for surgery [id number] Assessment & Plan (07/04/2023 10:06 AM FLOUR TESTER): It sounds like she has hit a wall with regards to workup of why she is having this persistent dysphagia. It sounds like dilation in the past has helped but recent esophagram did not demonstrate any sign of narrowing. Perhaps esophageal manometry may be beneficial or even endo flip to better appreciate the pressure seen in different portions of the esophagus. She could be having intermittent esophageal spasms that just was not caught on the esophagram. I am going to make a referral for further workup. Mild malnutrition 12/01/2020 Diarrhea 11/30/2020 Assessment & Plan (11/30/2020 4:57 PM CDT): Possibly medicine related as recently started on Semaglutide. COVID 19 negative. Stool work up including C. Diff is ordered. Continue iv fluids. SHANIQUE (acute kidney injury) 11/30/2020 Assessment & Plan (11/30/2020 5:04 PM CDT): Secondary to diarrhea and dehydration. Continue aggressive iv hydration. Monitor Cr. Avoid nephrotoxic meds. Metabolic acidosis 11/30/2020 Assessment & Plan (11/30/2020 5:05 PM CDT): Suspect secondary to diarrhea. Continue management of diarrhea as stated. Epidermoid cyst of skin of scalp 11/30/2015 Overview (10/11/2016): Epidermoid cyst of skin of scalp Recurrent major depressive disorder 10/25/2015 Overview (10/11/2016): Recurrent major depression Primary fibromyalgia syndrome 10/25/2015 Overview (10/11/2016): Primary fibromyalgia syndrome Type 2 diabetes mellitus 10/25/2015 Overview (10/11/2016): Type 2 diabetes mellitus Assessment & Plan (11/30/2020 5:00 PM CDT): On Lantus, Metformin and recently started on Semaglutide at home. Oral hypoglycemics currently held. Initiated on basal bolus regimen. Monitor accuchecks on a low dose SSI. Benign essential hypertension 10/25/2015 Overview (10/11/2016): Benign essential hypertension Assessment & Plan (11/30/2020 5:03 PM CDT): Home lisinopril on hold due to SHANIQUE. BP within normal limits at this time. Continue to monitor. Hyperlipidemia 10/25/2015 Overview (10/11/2016): Hyperlipidemia Assessment & Plan (11/30/2020 4:59 PM CDT): Home pravastatin substituted with Lipitor. Dehydration Immunizations Immunization Administration Dates Next Due Influenza, Quadrivalent, Split, Intramuscular Social History Tobacco Use Types Packs/Day Years Used Date Smoking Tobacco: Former Cigarettes 1 40 0 02/06/1980 - 02/06/2020 Smokeless Tobacco: Never Tobacco Cessation:Counseling Given: Not Answered Alcohol Use Standard Drinks/Week Comments Yes 0 (1 standard drink = 0.6 oz pur e alcohol) PHQ-2 Answer Date Recorded PHQ-2 Total Score (If total score is 3 or more points, staff should administer the PHQ-9) 0 12/02/2020 Comments Unknown Sex and Gender Information Value Date Recorded Sex Assigned at Not on file Legal Sex Female 9:31 AM FLOUR TESTER Gender Identity Not on file Sexual Orientation Not on file Last Filed Vital Signs Vital Sign Reading Time Taken Comments Blood Pressure 128/85 07/04/2023 9:41 AM FLOUR TESTER Pulse 76 07/04/2023 9:41 AM FLOUR TESTER Temperature 36.2 C (97.1 F) 07/04/2023 9:41 AM FLOUR TESTER Respiratory Rate 16 04/25/2022 10:33 AM CDT Oxygen Saturation 93% 07/04/2023 9:41 AM FLOUR TESTER Inhaled Oxygen Concentration - - Weight 101.6 kg (224 lb) 04/18/2024 11:16 AM CDT Height 172.7 cm (5' 8) 04/18/2024 11:16 AM CDT Body Mass Index 34.06 04/18/2024 11:16 AM CDT Plan of Treatment Upcoming Encounters Date Type Department Care Team (Late st Contact Info) Description 07/07/2025 7:30 AM FLOUR TESTER Hospital Encounter [address] [address] Hugh Sheldon DO [address] [place] [address] 07/07/2025 7:30 AM FLOUR TESTER - 07/07/2025 8:00 AM FLOUR TESTER Surgery [address] [address] Hugh Sheldon DO [address] [facility] [place] [address] COLONOSCOPY Scheduled Procedures Name Priority Associated Diagnoses Date/Ti me COLONOSCOPY History of colonic polyps Encounter for screening colonoscopy 07/07/2025 7:30 AM FLOUR TESTER Procedures Procedure Name Priority Date/Time Associated Diagnosis Comments CT LUNG CANCER SCREENING Schedule Routine, Read Routine (OP Routine) 04/18/2024 11:16 AM CDT Nicotine dependence, cigarettes, in remission EGFR Routine 12/02/2020 5:45 AM CDT SERUM LIPID PANEL Routine 11/07/2015 3:3 1 AM CDT from Last 3 Months or Most Recently Relevant to Health Maintenance Results * CT Lung Cancer Screening (04/18/2024 11:16 AM CDT) Anatomical Region Laterality Modality Chest N/A Computed Tomogra phy 04/21/2024 3:57 PM CDT Narrative 04/21/2024 4:07 PM CDT EXAM DESCRIPTION: CT LUNG CANCER SCREENING REASON FOR STUDY: Screening CT of the chest in a former smoker with a 40 pack year smoking history. Additional history: None. TECHNIQUE: Low dose CT scan of the chest was performed without intravenous contrast using helical scanning technique. The exam extends from the lung apices through the lung bases. Automatic exposure control was used as a dose optimization technique. NOTE: This study was performed for the specific purposes of lung cancer screening and is not an alternative to diagnostic chest CT. RADIATION DOSE: CT dose index volume (CTDIvol) = 11.65 mGy COMPARISON: 04/17/2023 FINDINGS: SMOKING RELATED LUNG DISEASE: There are mild emphysematous changes of lungs with scattered mild subsegmental atelectasis and scarring. There is minimal biapical pleural thickening and scarring. There is no definite evidence of a pneumothorax. The central airways are grossly patent. There is no definite evidence of focal consolidation or pleural effusion. There are scattered calcified granulomas noted. LUNG NODULES: There are scattered small pulmonary nodules noted, similar to the prior study. For example, there is a stable subtle 0.3 cm pulmonary nodule in the lateral right lower lobe (axial image 156). There is a stable 0.4 cm pulmonary nodule in the lateral left upper lobe (axial image 83). There is a stable subtle 0.2 cm pulmonary nodule in the posterolateral left lower lobe (axial image 157). CORONARY ARTERY CALCIFICATION: Present. OTHER: The heart size is stable. There is a small amount of pericardial fluid noted, which may be physiologic. There are atherosclerotic changes of the coronary vessels. There are mild atherosclerotic changes of the thoracic aorta. There is dilatation of main pulmonary artery measuring up to 4.1 cm, which is concerning for pulmonary arterial hypertension. There is no definite unenhanced CT evidence of mediastinal, hilar, or axillary lymphadenopathy. There are scattered subcentimeter mediastinal lymph nodes noted with largest measuring 0.6 cm in the subcarinal region (axial image 113). The visualized portions of the bilateral adrenal glands are grossly stable and unremarkable. There is mild osteopenia with degenerative changes of the spine. IMPRESSION: Redemonstration of scattered small pulmonary nodules measuring up to 0.4 cm, similar to the prior study. No definite evidence of a new suspicious pulmonary nodule. Mild emphysematous changes of lungs with scattered mild subsegmental atelectasis and scarring. Lung-RADS category 2: Benign appearance or behavior. Recommendation: Low dose Screening CT of chest in 12 months. THIS IS AN ELECTRONICALLY VERIFIED FINAL REPORT 04/21/2024 4:07 PM - Electronically signed by Ayla Mccormick D.O. PS: PS Report ID: [id number] Reading Location: [id number] Procedure Note Ayla Mccormick, DO - 04/21/2024 EXAM DESCRIPTION: CT LUNG CANCER SCREENING REASON FOR STUDY: Screening CT of the chest in a former smoker with a40 pack year smoking history. Additional history: None. TECHNIQUE: Low dose CT scan of the chest was performed without intravenous contrast using helical scanning technique. The exam extends from the lung apices through the lung bases. Automatic exposure control was used as adose optimization technique. NOTE: This study was performed for the specific purposes of lung cancer screening and is not an alternative to diagnostic chest CT. RADIATION DOSE: CT dose index volume (CTDIvol) = 11.65 mGy COMPARISON: 04/17/2023 FINDINGS: SMOKING RELATED LUNG DISEASE: There are mild emphysematous changes oflungs with scattered mild subsegmental atelectasis and scarring. There isminimal biapical pleural thickening and scarring. There is no definite evidenceof a pneumothorax. The central airways are grossly patent. There is nodefinite evidence of focal consolidation or pleural effusion. There are scattered calcified granulomas noted. LUNG NODULES: There are scattered small pulmonary nodules noted, similarto the prior study. For example, there is a stable subtle 0.3 cm pulmonary nodule in the lateral right lower lobe (axial image 156). There is astable 0.4 cm pulmonary nodule in the lateral left upper lobe (axial image 83). There is a stable subtle 0.2 cm pulmonary nodule in the posterolateralleft lower lobe (axial image 157). CORONARY ARTERY CALCIFICATION: Present. OTHER: The heart size is stable. There is a small amount of pericardial fluid noted, which may be physiologic. There are atherosclerotic changesof the coronary vessels. There are mild atherosclerotic changes of thethoracic aorta. There is dilatation of main pulmonary artery measuring up to 4.1cm, which is concerning for pulmonary arterial hypertension. There is no definite unenhanced CT evidence of mediastinal, hilar, oraxillary lymphadenopathy. There are scattered subcentimeter mediastinal lymphnodes noted with largest measuring 0.6 cm in the subcarinal region (axial ). The visualized portions of the bilateral adrenal glands are grossly stableand unremarkable. There is mild osteopenia with degenerative changes of the spine. IMPRESSION: Redemonstration of scattered small pulmonary nodules measuring up to 0.4cm, similar to the prior study. No definite evidence of a new suspiciouspulmonary nodule. Mild emphysematous changes of lungs with scattered mild subsegmental atelectasis and scarring. Lung-RADS category 2: Benign appearance or behavior. Recommendation: Low dose Screening CT of chest in 12 months. THIS IS AN ELECTRONICALLY VERIFIED FINAL REPORT 04/21/2024 4:07 PM - Electronically signed by Ayla Mccormick D.O. PS: PS Report ID: [id number] Reading Location: [id number] us Santiago Webster MD IMG CT PROCEDURES Final Result * eGFR (12/02/2020 5:45 AM CDT) eGFR 36 mL/min/1.7 3 m2 [facility] ([place]) Comment: Interpretive Data Reference Interval Normal >/= 90 mL/min/1.73m2 Mildly decreased* 60 - 89 mL/min/1.73m2 Mildly to moderately decreased 45 - 59 mL/min/1.73m2 Moderately to severely decreased 30 - 44 mL/min/1.73m2 Severely decreased 15 - 29 mL/min/1.73m2 Kidney Failure < 15 mL/min/1.73m2 *Relative to young adult level Estimated glomerular filtration rate is determined by the CKD-EPI equation recommended by the National Kidney Foundation (KDIGO 2012 Clinical Practice Guideline for the Evaluation and Management of Chronic Kidney Disease. Kidney Intnl Suppl Jul 2012;3:1). The CKD-EPI equation should not be used for patients with unstable renal function and has not been validated in children and those over 70. Current interpretive data was last reviewed 2020 Blood specimen (specimen) 12/02/2020 5:45 AM CDT 12/02/2020 6:00 AM CDT us Elizabeth Kent MD LAB BLOOD ORDERABLES Final Resu lt [facility] ([place]) [facility] Department [place] [address] * (ABNORMAL) Serum lipid panel (11/07/2015 3:31 AM CDT) Cholesterol 192 125 - 200 mg/dl HISTORICAL RESULTS HDL 48 > OR = 46 mg/dl HISTORICAL RESULTS Triglycerides 224(H) <150 mg/dl HISTORICAL RESULTS LDL 99 <130 mg/dl HISTORICAL RESULTS Comment: Desirable range <100 mg/dL for patients with CHD or diabetes and <70 mg/dL for diabetic patients with known heart disease. Chol/HDL ratio 4.0 < OR = 5.0 calc HISTORICAL RESULTS Non-HDL cholesterol, calculated 144 mg/dl HISTORICAL RESULTS Comment: Target for non-HDL cholesterol is 30 mg/dL higher than LDL cholesterol target. Serum 11/07/2015 3:31 AM CDT Narrative HISTORICAL RESULTS - 11/08/2015 12:00 PM CDT Test performed at [facility] [address] [facility] [place] [address] Director: ZBIGNIEW SAMPSON DO,MPH us Historical Provider LAB BLOOD ORDERABLES Sherri crowley Result HISTORICAL RESULTS from Last 3 Months or Most Recently Relevant to Health Maintenance Insurance DEVOTED MEDICARE O [facility] MEDICARE HMO Advance Directives For more information, please contact: [phone] * Full Code (Latest Code Status on File) Date Activated Date Inactivated Comments 04/25/2022 8:02 AM 04/25/2022 3:34 PM * Full Code Date Activated Date Inactivated Comments 11/30/2020 3:33 PM 12/02/2020 10:19 PM * Full Code Date Activated Date Inactivated Comments 11/30/2020 3:10 PM 11/30/2020 3:33 PM Healthcare Agents on File Name Relationship Healthcare Agent Relationshi p Communication Иван Julio Significant Other Health Care Agent Rivas Kim Son Health Care Agent Care Teams County Court Judge Relationship Specialty Start Date End Date Santiago Webster MD [address] [place] [address] PCP - General 11/17/21
--- OUTSIDE RECORDS SUMMARY | 2025-01-25 10:12 | XMS_ITS | Clinical Summary ---
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 Depending on what is shown we will determine further course of action Disease of esophagus 12/26/2021 Overview (12/26/2021): Added automatically from request for surgery [id number] Assessment & Plan (07/04/2023 10:06 AM RN SUPPLEMENTAL): It sounds like she has hit a [...] CDT): Home pravastatin substituted with Lipitor. Dehydration Encounters Date Type Department Care Team Description 12/03/2024 Telephone [facility] Gastroenterology at [address] [place] [address] Hugh Sheldon, DO from Last 3 Months Immunizations Immunization Administration Dates Next Due Influenza, Quadrivalent, Split, Intramuscular Surgical History Surgery Date Site/Laterality Comments OTHER SURGICAL HISTORY D&C CHOLECYSTECTOMY Cholecystectomy BUNIONECTOMY Bunionectomy TOTAL ABDOMINAL HYSTERECTOMY W/ BILATERAL SALPINGOOPHORECTOMY Hysterectomy, total abdominal, BSO ANKLE SURGERY Right Ankle Surgery OTHER SURGICAL HISTORY Left Plantar Facia OTHER SURGICAL HISTORY Right Plantar facia NOSE SURGERY nasal surgery OTHER SURGICAL HISTORY exc scalp cysts w.moderate complexity skin closure Medical History Medical History Date Comments Hypertension Hypertension Type 2 diabetes mellitus (HCC) D iabetes type 2; Comments: DNT 10/25/2015 - Hyperlipidemia Hyperlipidemia; Comments: DNT 10/25/2015 - High cholesterol Family History Medical History Relation Name Comments Diabetes Brother Diabetes mellit us; Stomach cancer Father Cancer, gastr ic; Pancreatic cancer Father's Brother 2 Canc er, pancreas; Cause of : Cancer, pancreas Heart disease Maternal Grandfather Heart disease; Stomach cancer Maternal Grandfather Cance r, gastric; Diabetes Mother Diabetes mellit us; Hypertension Mother Hypertension; Prostate cancer Paternal Grandfather Canc er, prostate; Diabetes Sister Diabetes mellit us; Relation Name Status Comments Brother Father Father's Brother 1 Father's Brother 2 Maternal Grandfather Mother Paternal Grandfather Sister Social History Tobacco Use Types Packs/Day Years [...] on file Legal Sex Female 9:31 AM RN SUPPLEMENTAL Gender Identity Not on file Sexual Orientation Not on file Obstetrics History Last Filed Vital Signs Vital Sign Reading Time Taken Comments Blood Pressure 128/85 07/04/2023 9:41 AM RN SUPPLEMENTAL Pulse 76 07/04/2023 9:41 AM RN SUPPLEMENTAL Temperature 36.2 C (97.1 F) 07/04/2023 9:41 AM RN SUPPLEMENTAL Respiratory Rate 16 04/25/2022 10:33 AM CDT Oxygen Saturation 93% 07/04/2023 9:41 AM RN SUPPLEMENTAL Inhaled Oxygen Concentration - - Weight 101.6 kg (224 lb) 04/18/2024 11:16 AM CDT Height 172.7 cm (5' 8) 04/18/2024 11:16 AM CDT Body Mass Index 34.06 04/18/2024 11:16 AM CDT Plan of Treatment Upcoming Encounters Date Type Department Care Team (Late st Contact Info) Description 07/07/2025 7:30 AM RN SUPPLEMENTAL Hospital Encounter [address] [address] Hugh Sheldon, DO [address] [facility] [address] [place] [address] 07/07/2025 7:30 AM RN SUPPLEMENTAL - 07/07/2025 8:00 AM RN SUPPLEMENTAL Surgery [address] [address] Hugh Sheldon, [address] [facility] [address] [place] [address] COLONOSCOPY Scheduled Procedures Name Priority Associated Diagnoses Date/Ti me COLONOSCOPY History of colonic polyps Encounter for screening colonoscopy 07/07/2025 7:30 AM RN SUPPLEMENTAL Health Maintenance Due Date Last Done Comments Albumin Creatinine Ratio, Urine 1957 Colon Cancer Screening-Colonoscopy 1957 Hemoglobin A1C 1957 Hepatitis C Screening 1957 Osteoporosis Screening-Bone Density Scan 1957 Dilated Eye Exam 1957 Foot Exam 1957 DTaP/Tdap/Td Vaccine (1 - Tdap) 1968 Hepatitis B Screening 1975 Zoster Vaccine (1 of 2) 2007 Pneumococcal vaccine 65+ (2 of 2 - PCV) 03/08/2010 03/08/2009 Breast Cancer Screening-Mammogram 05/09/2021 05/09/2020, 05/09/2020, 01/27/2018, Additional history exists Depression Screening 11/30/2021 11/30/2020 Fall Risk Assessment 12/02/2021 12/02/2020 eGFR 12/02/2021 12/02/2020, 05/2 01/2021, 11/30/2020 Well Visit 65+ 2022 Covid-19 Vaccine (4 - 4-2 5 season) 2024 09/05/2021, 09/07/2020, 08/09/2020 Lipid Panel 11/11/2024 11/12/2023, 08/09, 11/07/2015 Influenza Vaccine (#1) 2025 , 03/28/2020, 05/06/2019, Additional history exists Lung Cancer Screening 04/19/2025 04/18/2024 , 04/17/2023, 12/12/2021 Procedures Procedure Name Priority Date/Time Associated Diagnosis [...] Ayla Mccormick D.O. PS: PS Report ID: [id number] Reading Location: [id number] Procedure Note Ayla Mccormick, - 04/21/2024 EXAM DESCRIPTION: CT LUNG CANCER [...] Electronically signed by Ayla Mccormick D.O. PS: ERIKA Report ID: [id number] Reading Location: [id number] us Santiago Webster MD IMG CT PROCEDURES Final Result * eGFR (12/02/2020 5:45 AM CDT) eGFR 36 mL/min/1.7 3 m2 [facility] ([facility]) Comment: Interpretive Data Reference Interval Normal >/= [...] BLOOD ORDERABLES Final Resu lt [facility] ([facility]) 1 [facility] Department of [employer] [place], [place] [id number] * (ABNORMAL) Serum lipid panel (11/07/2015 3:31 [...] 11/08/2015 12:00 PM CDT Test performed [facility] [address] [place] [address] Director: ZBIGNIEW SAMPSON DO,MPH us Historical Provider LAB BLOOD ORDERABLES Sherri crowley Result HISTORICAL RESULTS from Last 3 Months or Most Recently Relevant to Health Maintenance Insurance [facility] MEDICARE O [facility] MEDICARE HMO Advance Directives For more information, please contact: [phone] * Full Code (Latest Code Status on File) Date Activated Date Inactivated Comments 04/25/2022 8:02 AM 04/25/2022 3:34 PM * Full Code Date Activated Date Inactivated Comments 11/30/2020 3:33 PM 12/02/2020 10:19 PM * Full Code Date Activated Date Inactivated Comments 11/30/2020 3:10 PM 11/30/2020 3:33 PM Healthcare Agents on File Name Relationship Healthcare Agent Relationshi p Communication Иван Kim Significant Other Health Care Agent Rivas Kim Son Health Care Agent Care Teams 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
--- NOTE | 2025-01-25 10:23 | ED.FALL ---
HPI - Fall General Chief Complaint: Fall Stated Complaint: left side rib pain from fall Time Seen by Provider: 01/25/25 10:23 Source: patient, RN notes reviewed and old records reviewed Mode of arrival: ambulatory Limitations: no limitations History of Present Illness HPI Narrative: 69-year-old female presents to the [facility] with complaints of left lower anterior rib/chest pain. Patient states ?it is pleurisy? from a fall on the 20 of January, 5 days ago. Patient states that she fell 5 days ago, no symptoms until last night. States she has a history of frequent falls, landed on her left side. Patient states the left-sided anterior chest pain started last night, increasing shortness of breath. Last night the pain radiated into her shoulder and side of neck. States that she took her vitals and continue to work. Comes in with continued discomfort, pain is not reproducible palpation. Patient is history of diabetes, high blood pressure, high cholesterol Onset (ago): day(s) (1) Related Data Home Medications ?Medication ?Instructions ?Recorded ?Confirmed ?Last Taken ?Type duloxetine 30 mg capsule,delayed mg PO 05/27/23 Unknown History release insulin glargine-yfgn 100 unit/mL unit subcut 05/27/23 Unknown History (3 mL) subcutaneous pen lisinopril 40 mg tablet mg 05/27/23 Unknown History metformin 1,000 mg tablet mg 05/27/23 Unknown History pravastatin 80 mg tablet mg 05/27/23 Unknown History celecoxib 200 mg capsule mg 01/25/25 Unknown History Allergies Allergy/AdvReac Type Severity Reaction Status Date / Time No Known Allergies Allergy Verified 11/30/20 10:52 Review of Systems Review of Systems: All systems reviewed & are unremarkable except as noted in HPI and below Constitutional: Constitutional: Reports no additional constitutional complaints Cardiovascular: Cardiovascular: Reports as per HPI, Reports chest pain and Reports dyspnea Respiratory: Respiratory: Reports as per HPI, Denies chest congestion, Denies cough and Reports dyspnea Musculoskeletal: Musculoskeletal: Reports as per HPI Integumentary/Breasts: Skin/Breast: Reports system reviewed and no additional complaints, except as docu [facility] Past Medical History Medical History History of diabetes mellitus History of high blood pressure Comments At the time of my signature, I reviewed and agree with the nursing past medical, surgical, social, and family history. There is no relevant family history pertinent to the patient complaint. Exam Const: General: cooperative, healthy appearing, comfortable, no acute distress, well developed, alert and well nourished Nutritional Appearance: well nourished and obese Orientation/consciousness: patient oriented x3 Limitations: no limitations HENMT: Head: normal to inspection Eyes: General: appearance normal, both eyes and all related structures Alignment and Position: alignment normal Neck: Neck: normal visual inspection, full ROM, no lymphadenopathy and no meningeal signs Chest: Chest palpation & inspection: normal inspection of the chest Chest/axillae images:  1. Reports generalized pain Resp: Effort & Inspection: normal respiratory effort and able to speak in complete sentences Auscultation: clear to auscultation bilaterally, no crackles, no rales, no rhonchi and no wheezes Cardio: Rate: regular rate Skin: General skin exam: normal color and no rashes or lesions noted Neuro: General: patient oriented x3, gait normal, moves all extremities and no meningeal signs Cognition (Neuro): normal cognition Speech: normal speech Gait exam (Neuro): Normal gait present Extrem: General: normal to inspection, full ROM, capillary refill normal and normal gait Psych: Appearance: grossly normal and well kempt Mental Status: mental status grossly normal Speech and movement: Normal speech and movement present and Clear speech present Affect: normal affect Attitude: cooperative Course Course Level of Care: Express Care Visit Vital Signs Vital signs: Vital Signs Temperature 97.8 F 01/25/25 10:12 Pulse Rate 81 01/25/25 10:12 Respiratory Rate 01/25/25 10:12 Blood Pressure 145/70 H 01/25/25 10:12 Pulse Oximetry 100 01/25/25 10:12 Oxygen Delivery Room Air 01/25/25 10:12 Temperature 97.8 F 01/25/25 10:12 Pulse Rate 81 01/25/25 10:12 Respiratory Rate 01/25/25 10:12 Blood Pressure 145/70 H 01/25/25 10:12 Pulse Oximetry 100 01/25/25 10:12 Oxygen Delivery Room Air 01/25/25 10:12 Reviewed Transfer Transfered to: [facility] (Per patient request) Transportation: Other (POV, declined EMS) Transfer rationale: Patient with left-sided chest pain, history of diabetes, hypertension, high cholesterol with increased left rib pain, chest pain with shortness of breath sending for higher level of care Accepting physician: Spoke with Yoshi FAULKNER, Dr. Gauthier MDM - Fall MDM Narrative Medical decision making narrative: Patient states that she fell 5 days ago, last night started with some chest pain, shortness of breath. Comes in today with pain and shortness of breath not subsiding. Patient was concern for pleurisy, rib fracture. Discussed patient's risk factors of morbid obesity, history of diabetes, history of hypertension, history of high cholesterol sending for higher level care, unable to do cardiac workup. X-ray negative for rib fractures. No ST elevation or depression noted EKG however EKG is abnormal Transfer instructions reviewed with patient to go directly to the ER. Patient is declining EMS All questions have been answered, and the patient deny any further questions. Some parts of this dictation were generated by voice recognition software and may contain typographical and/or grammatical inaccuracies. Differential Diagnosis Differential diagnosis: Likely syncope and other (Rib fracture, rib contusion, pleurisy, cardiac event, PE) Imaging Data Radiologist's impression: EXAM/ PROCEDURE: [id number] - 01/25/2025 10:16 CDT HISTORY: 69 years old Female with fall 5 days ago. Anterior lower rib pain COMPARISON: None available TECHNIQUE: Three view(s) FINDINGS/ IMPRESSION: There are no fractures or dislocations.Joint space narrowing, subchondral sclerosis, subchondral cyst formation and osteophyte formation, compatible with mild osteoarthritis. Visualized portions of the lungs are clear. Central silhouette is unremarkable. Atherosclerotic calcifications are seen. Cholecystectomy clips are seen. ECG Data EKG #1: Attestation: I personally reviewed and interpreted this ECG as follows: ECG completion date: 01/25/25 ECG completion time: 10:52 Prior ECG tracings: not available for review Interpretation: Sinus rhythm, possible inferior UT probably old. Ventricular rate of 83, RI 136, QRS duration 102. No ST elevation or depression noted. Borderline EKG Critical Care Time Critical Care Time Critical Care Time: No Discharge Plan Discharge Clinical Impression: Left-sided chest pain, History of fall Patient Disposition: Acute Care Hospital Condition: Stable Patient Language: Macedonian Prescriptions: No Action pravastatin 80 mg tablet metformin 1,000 mg tablet lisinopril 40 mg tablet duloxetine 30 mg capsule,delayed release(DR/EC) PO insulin glargine-yfgn 100 unit/mL (3 mL) insulin pen SUBCUT celecoxib 200 mg capsule Follow-up/Referrals: Darin,Otoniel Brewer MD [Primary Care Provider] -
--- NOTE | 2025-01-25 10:27 | ECG_ITS ---
Test Date: 2025-01-25 10:52:05 Measurements Intervals Castile Rate: 83 P: 65 MD: 136 QRS: 44 QRSD: 102 T: 61 QT: 391 QTc: 462 Interpretive Statements SINUS RHYTHM WARNING: DATA QUALITY MAY AFFECT INTERPRETATION No previous ECG available for comparison Electronically Signed On 01-25-2025 11:29:39 CDT by Terry Haynes M.D.
== END 2025-01-25 11:23 | disposition short-term general hospital (02) ==
LOC: EXPBETH 10:08
PROVIDERS: Emergency Provider Nurse Practitioner; PCP Internal Medicine
DX: R07.9 Chest pain, unspecified (principal); E11.9 Type 2 diabetes mellitus without complications; W19.XXXA Unspecified fall, initial encounter
CPT/HCPCS: 71101; 93005; 99213; G0463